=== PATIENT | female | born 1995 | race Asian ===

== ENCOUNTER → 2017-01-15 | Outpatient (REF) | payer OTHER | LOC: M LAB REF 18:21 | PROVIDERS: ATTEND Physician Assistant Medical | DX: J11.1 Influenza due to unidentified influenza virus with other respiratory manifestations (principal) ==

== ENCOUNTER → 2017-05-03 | Outpatient (REF) | payer OTHER | LOC: M SFHCWAGY 16:42 | PROVIDERS: ATTEND Nurse Practitioner Family | DX: Z11.3 Encounter for screening for infections with a predominantly sexual mode of transmission (principal) ==

== ENCOUNTER 2018-06-18 20:41 | Emergency (ER) | payer MEDICAID, SELFPAY, OTHER ==
[2018-06-18 21:32] LABS: CONTROL LINE UCG INT CTR LINE PRESENT; URINE PREG TEST NEGATIVE (NEGATIVE)
[2018-06-18 21:36] LABS: KETONE, URINE AUTO RFX 2+ mg/dL (NEGATIVE); MUCUS, URINE RFX SMALL (NEGATIVE); NITRITE, URINE AUTO RFX NEGATIVE (NEGATIVE); RBC, URINE AUTO RFX 16 /HPF (0-3); SPECIFIC GRAVITY UR AUTO RFX 1.014 (1.002-1.035); SQUAM EPITHELIAL CELL UR AURFX 6 /HPF (0-6)
[2018-06-18 21:37] LABS: LEUKOCYTE ESTERASE UR AUTO RFX 3+ (NEGATIVE); WBC, URINE AUTO RFX TNTC /HPF (0-3)
[2018-06-18] MEDS: ONDANSETRON 4 MG ORAL DISINTEGRATING TAB (Q0162 PER 1MG) PO (22:24)
[2018-06-18] MEDS: PHENAZOPYRIDINE 100 MG TAB PO (22:24)
[2018-06-18] MEDS: NITROFURANTOIN (MACROBID) 100 MG CAP PO (22:24)
== END 2018-06-18 22:48 | disposition home or self-care (01) ==
LOC: M ED 20:41
DX: N39.0 Urinary tract infection, site not specified (principal); J45.909 Unspecified asthma, uncomplicated; R51 Headache
CPT/HCPCS: Q0162

== ENCOUNTER → 2018-12-14 | Outpatient (REF) | payer OTHER ==
[~2018-12-14] MED LIST: MACR100C43 PO; PYRI1TAB5 PO; ZOFR4TAB14 PO
[2018-12-14 21:35] LABS: CHLAMYDIA DNA AMPLIFICATION NEGATIVE (NEGATIVE); GC DNA AMPLIFICATION NEGATIVE (NEGATIVE)
== END ==
LOC: M SFHCWAGY 14:54
PROVIDERS: ATTEND Nurse Practitioner Women's Health
DX: Z12.4 Encounter for screening for malignant neoplasm of cervix (principal)

== ENCOUNTER 2019-10-18 08:51 | Outpatient (CLI) | payer OTHER ==
[~2019-10-18] VITALS: Ht 147.3 cm; Wt 67.0 kg
[2019-10-18 08:53] VITALS: BP 121/90
[2019-10-19] MEDS ORDERED: PRENTAB9 PO (14:00)
--- NOTE | 2019-10-19 21:35 | HPE ---
DATE OF ADMISSION: 10/18/2019 This lady is a 23-year-old 1, last period 01/30/2019, estimated date of confinement (EDC) 11/05/2019, at 37 and three weeks of gestation. She has a history of bradycardia while at having an ultrasound. The baseline was 80 but she was lying on her back. She was immediately transferred over to labor and delivery for assessment. Risk factors is she has a marginal cord insertion. LABORATORY DATA: O+, HIV negative, hepatitis negative, RPR negative, rubella immune. Varicella equivocal. Pap normal. Urine negative. Gonorrhea and Chlamydia are negative. One-hour glucose was 138. Three-hour GTT, fasting 85, one-hour 146, two-hour 130 and three hours 82. Blood pressure is 121/90, pulse 106, temperature 97.0, respirations are 18. Urine is not available. PHYSICAL EXAMINATION: No distress. Symphysis fundus height is 38, vertex presenting. The patient is on her side. Category 1 strip for at least half an hour with accelerations noted, moderate variability and normal baseline. No decelerations were noted and we never had an abnormal heart rate pattern since. In summary, we have a 37+ week of gestation, had an episodic bradycardia due to positional change, was discharged with precautions, has a followup appointment 11/01/2019. Discharged undelivered.
== END 2019-10-18 10:15 | disposition home or self-care (01) ==
LOC: M LDO 08:51
PROVIDERS: ATTEND Obstetrics & Gynecology
DX: O36.8330 Maternal care for abnormalities of the fetal heart rate or rhythm, third trimester, not applicable or unspecified (principal); Z3A.37 37 weeks gestation of pregnancy
CPT/HCPCS: 59025; G0378; G0463

== ENCOUNTER 2019-10-19 13:48 | Outpatient (CLI) | payer OTHER ==
[~2019-10-19] VITALS: Ht 149.9 cm; Wt 66.5 kg
[2019-10-19] MEDS ORDERED: PRENTAB9 PO (14:00)
[2019-10-19 14:06] VITALS: BP 112/83
--- NOTE | 2019-10-19 14:56 | IPNPDOC ---
Text Note Date of Service The patient was seen on 10/19/19. NOTE patient is a 23 yo G1 @ 37+4wks gestation presents with concern for decreased movement. She is feeling baby move while in triage. denies ctx/lof/vb. vitals: nomal NAD abd: gravid, soft, nt, cephalic by rosa fht: 135/mod kevin/pos accel/no decel toco: irregular ctx a/p patient @ 37+4wks, doing well. baby moving. educate patient on kick count. return precautions given. f/u with regularly scheduled appointment. DO Consuelo VS,Henry, I+O VS, Ashbone, I+O Vital Signs Date Time Temp Pulse Resp B/P (MAP) Pulse Ox O2 Delivery O2 Flow Rate FiO2 10/19/19 14:06 98.4 110 18 112/83 (93) Room Air WHITNEY PULLIAM DO Oct 19, 2019 14:56
== END 2019-10-19 14:50 | disposition home or self-care (01) ==
LOC: M LDO 13:48
PROVIDERS: ATTEND Obstetrics & Gynecology
DX: O36.8130 Decreased fetal movements, third trimester, not applicable or unspecified (principal); Z3A.33 33 weeks gestation of pregnancy
CPT/HCPCS: 59025; G0378; G0463

== ENCOUNTER 2019-10-20 09:24 | Inpatient (IN) | payer OTHER ==
[~2019-10-20] VITALS: Ht 149.9 cm; Wt 66.7 kg
[2019-10-20] VITALS (42 sets, daily range): BP systolic 110–144; BP diastolic 58–99
[~2019-10-20 09:24] MED LIST changes: +PRENTAB9 PO
[2019-10-20] MEDS ORDERED: LACTATED RINGER'S 1000 ML IV STA (10:06)
--- NOTE | 2019-10-20 10:42 | HPEPDOC ---
Obstetrical History & Physical General Date of Admission Oct 20, 2019 at 09:46 History of Present Illness Chula is a 24yo with SIUP at 37w5d by 10wk u/s presenting with gross celeste kage of clear fluid that started around 0800 this morning with intermittent ctx that are not yet painful. No bleeding. Good movement. no fevers/chills/nausea/vomiting. Chief Complaint: LOF, term Information Provided By: Patient Care Care: Good Care Dating Final EDC: Nov 05, 2019 Final EDC by: 1st trimester (US) Antepartum Course Diagnos(e)s 40 pound weight gain, marginal cord insertion, varicella equivocal Height (inches): 58 Pre- weight (lbs.): 106 Admission Weight (lbs.): 147 Change in Weight (lbs.): 41 Past Medical History Past Obstetrical History : Past Obstetrical History: [employer] History: No pertinent history Past Medical History Medical History benign Surgical History: [place] teeth Family History Significant Family History: No pertinent family hx Social History Marital Status: Family situation: Spouse/partner home Psychosocial History: No pertinent psych hx * Smoker: non-smoker Alcohol: Denies Drugs: denies Imunizations Tdap status: current Influenza Status: current Allergies Coded Allergies: No Known Allergies (Unverified , 06/18/18) Medications Scheduled No.137/Iron/Folic Acd ( Vitamin Tablet) 1 Each Tablet, 1 TAB PO DAILY Physical Examination Physical Examination GENERAL: Alert and oriented times three. ABDOMEN: Gravid and non-tender to touch. FETUS: Is vertex (VTX) by sterile vaginal examination (SVE) EXTREMITIES: No edema BLE Grossly ruptured with marguerite pad soaked with clear fluid, immediately nitrazine positive Laboratory Data 24H LABS Laboratory Tests 2 10/20/19 09:49: Serology Scanned Report Hepatitis B Testing Pertinent Laboratoy Data Blood Type: O+ RBC Antibody Screen: Negative HIV: Negative Hepatitis B: Negative Hepatitis C: Unknown Rapid Plasma Reagin: Nonreactive Rubella: Immune Varicella: Nonreactive Chlamydia/Gonorrhea: Negative Group B Streptococcus: Unknown Cystic Fibrosis: Negative Glucose Tolerance Test: 138 (85/146/130/82) Anatomy Ultrasound Ultrasound Date: Jul 17, 2019 Placenta Location: Posterior Normal Anatomy: Yes Placenta Previa: No Steroid Therapy Steroid Therapy: No Vaginal Examination Dilation: 2cm Effacement: 90% Station: -1 Cervical Consistency: Soft Cervical Position: Middle Presentation: Cephalic presentation Assessment Heart Rate (FHR): 140 Variability: Moderate Accelerations: Positive Decelerations: None Tocometer Contractions: Yes Frequency: irregular Strength: palpated as mild Assessment/Plan Assessment Chula is a 24yo with SIUP at 37w5d by 10wk u/s with PROM, clear, 0800 today. Nitrazine positive, grossly ruptured. Irregular ctx. SCE /-2. Vitals wnl, benign exam. GBS unknown (collected two days prior, not yet resulted). Cephalic by SCE. Plan Admit and orient. [employer] and consent. Diet: clear liquids Group B Streptococcus (GBS) unknown, but full term so abx ppx not indicated Labs and intravenous (IV) per unit protocol. Counseled on Pitocin and augmentation of labor (IOL). Lactated Ringers (LR): Bolus 1000 mL, then at 125 mL/hr. Anticipate normal spontaneous delivery () Candidate for epidural as desired Safe to proceed MD Isai Langston Katrina D MD Oct 20, 2019 10:26
[2019-10-20 10:45] LABS: HEMATOCRIT 40.3 % (36.0-47.0); HEMOGLOBIN 12.6 g/dl (12.0-15.5); MEAN CORPUSCULAR HEMOGLOBIN 21.8 pg (27.0-33.0); MEAN CORPUSCULAR HGB CONC 31.3 g/dl (32.0-36.5); MEAN CORPUSCULAR VOLUME 69.7 fl (80.0-96.0); PLATELET COUNT, AUTOMATED 245 10^3/uL (150-450); RED BLOOD COUNT 5.78 10^6/uL (4.00-5.40); WHITE BLOOD COUNT 11.6 10^3/uL (4.0-10.0)
[2019-10-20] MEDS ORDERED: OXYTOCIN DRIP 30 UNITS in IV 1 EA IV SCH (10:45)
[2019-10-20] MEDS: LR 1,000 ML IV SCH ×3 (11:29→19:13)
[2019-10-20] MEDS ORDERED: PROMETHAZINE INJ 25 MG/ML VIAL (J2550) IV ONE (13:30)
[2019-10-20] MEDS ORDERED: BUTORPHANOL 2 MG/ML INJ (J0595) IV PRN (14:00)
[2019-10-20] MEDS ORDERED: FENTANYL 2MCG/ML ROPIVACAINE 0.2% IN 0.9% NACL 100ML IVBAG As Ordered ONE (16:47)
[2019-10-20] MEDS ORDERED: ONDANSETRON 4MG/2ML VIAL (J2405) IV PRN (19:00)
[2019-10-20] MEDS ORDERED: FENTANYL/ROPIVACAINE/NACL BAG 100 ML EPIDURAL SCH (19:00)
[2019-10-20] MEDS ORDERED: NALOXONE INJ 0.4 MG/1 ML VIAL (J2310) IV PRN (19:00)
[2019-10-20] MEDS ORDERED: EPIDURAL/PCA KEYS XX PRN (19:00)
[2019-10-20] MEDS ORDERED: REFRIGERATOR IV KEYS XX PRN (19:00)
[2019-10-20] MEDS ORDERED: ePHEDrine SULFATE 25 MG/5 ML(5MG/ML) SYRINGE IV PRN (19:00)
[2019-10-20] MEDS ORDERED: LACTATED RINGER'S 1000 ML IV PRN (19:00)
[2019-10-20] MEDS ORDERED: EPIDURAL COMMENT XX SCH (19:00)
[2019-10-20] MEDS ORDERED: diphenhydrAMINE INJ 50MG/ML VIAL (J1200) IV PRN (19:00)
--- NOTE | 2019-10-20 23:53 | IPNPDOC ---
Text Note Date of Service The patient was seen on 10/20/19. NOTE Intrapartum Note Pt doing well with epidural. Feels occasional rectal pressure. I checked her at 2245 and she was C/C/0. We did 2 sets of practice pushes without much forward progress, so I elected to have her do passive descent for 1 hour. Vitals wnl, afebrile Cat I FHRT with bl 130's, +accels, -decels, mod kevin [place]: ctx q2-3min plan to now begin pushing in earnest safe to proceed Dr. Joan Alex MD VS,Henry, I+O VS, Henry, I+O Laboratory Tests 10/20/19 10:28 Vital Signs Date Time Temp Pulse Resp B/P (MAP) Pulse Ox O2 Delivery O2 Flow Rate FiO2 10/20/19 21:58 90 116/65 (82) 10/20/19 21:29 16 10/20/19 20:58 98.9 Joan Alex MD Oct 20, 2019 23:53
[2019-10-21] VITALS (10 sets, daily range): BP systolic 112–146; BP diastolic 55–82
[2019-10-21] MEDS ORDERED: OXYTOCIN DRIP 30 UNITS in IV 1 EA IV SCH (01:39)
[2019-10-21] MEDS ORDERED: RHOGAM 300 MCG (1500 IU) INJ (J2790) IM SCH (01:45)
[2019-10-21] MEDS ORDERED: MEASLES,MUMPS,RUBELLA VACCINE INJ (MMR-II) (90707) SC SCH (01:45)
[2019-10-21] MEDS ORDERED: DIBUCAINE 1% OINTMENT 30GM TOP PRN (01:45)
[2019-10-21] MEDS ORDERED: IBUPROFEN 600 MG TAB PO PRN (01:45)
[2019-10-21] MEDS ORDERED: ACETAMINOPHEN TAB 650MG DOSE (2X325MG) PO PRN (01:45)
[2019-10-21] MEDS ORDERED: DOCUSATE SODIUM 100 MG CAP PO PRN (01:45)
[2019-10-21] MEDS ORDERED: ACETAMINOPHEN 500 MG TAB PO PRN (01:45)
[2019-10-21] MEDS ORDERED: IBUPROFEN 800 MG TAB PO PRN (01:45)
--- NOTE | 2019-10-21 01:53 | DNPDOC ---
[facility] Delivery Note Delivery Note DATE OF DELIVERY: 21 Oct 2019 at 0116 PREDELIVERY DIAGNOSIS: 37w6d SROM POST DELIVERY DIAGNOSIS: Delivered. PROCEDURE: Spontaneous vaginal delivery DIRECTOR WEIGHTS AND MEASURES: Dr. Joan Alex MD ANESTHESIA: epidural ESTIMATED BLOOD LOSS: 200 mL. FINDINGS: 7 pound 8 ounce (3390g) male infant, Score 9/9 DELIVERY SUMMARY: Chula is a 24yo [id number] s/p uncomplicated at 37w6d after presenting with SROM, delivering at 0116 on 21 Oct 2019. She progressed from 2/90/-1 with pitocin augmentation to C/C/0 at which point she began pushing. head delivered OA, restituted CHRIS. Left anterior shoulder delivered followed by posterior shoulder (with right compound hand) and corpus. Infant had spontaneous cry and was vigorous, apgars 9/9, placed on maternal abdomen where nose/mouth were suctioned with bulb suction. After approx 1 min, umbilical cord was clamped x2 and cut by FOB. Cord blood obtained for MBT O pos. With fundal massage and traction on the cord, placenta delivered spontaneously and intact with 3 vessel centrally inserted cord. Bimanual massage performed and pitocin given per protocol via IV, fundus then firm at u-2cm. Inspection of perineum and vagina revealed small 1mll and periurethral laceration, both repaired with figure of 8's with complete hemostasis and reapproximation. Mom and infant were doing well when I left the room. MD Isai Langston Katrina D MD Oct 21, 2019 01:53
[2019-10-21] MEDS: PRENATAL VITAMINS CHEWABLE TABLET PO SCH (10:19)
[2019-10-22 06:00] VITALS: BP 123/72
--- NOTE | 2019-10-22 08:49 | IPNPDOC ---
Progress Note Date of Service: Oct 22, 2019 Progress Note Chula is a 24 yo G1 now P1 who is PPD#1 s/p uncomplicated in the storage center manager hours of 21Oct2019 after being admitted for active labor. No acute events over last 24 hours. Ms. Mcconnell feels well this morning and has no complaints. SHe is ambulating, voiding, tolerating a regular diet, has minimal lochia, and minimal pain. She denies fevers/chills, n/v, or dysuria. Vitals - VSS, afebrile, normotensive, non tachycardic General - AAOX3, sitting up in bed, NAD Abdomen - Fundus firm at U-2. No fundal tenderness Extremities - No edema UO - appropriate Ms. Mcconnell is doing well and is making an appropriate recovery. Plan to continue routine care. Anticipate discharge home tomorrow. Bal Hsu DO VS, I&O, 24H, Fishbone Vital Signs/I&O Vital Signs Date Time Temp Pulse Resp B/P (MAP) Pulse Ox O2 Delivery O2 Flow Rate FiO2 10/22/19 06:00 97.0 90 18 123/72 (89) 98 Room Air I&O- Last 24 Hours up to 6 AM 10/22/19 06:00 Intake Total 240 ml Balance 240 ml BAL HSU DO Oct 22, 2019 08:49
[2019-10-22] MEDS: PRENATAL VITAMINS CHEWABLE TABLET PO SCH (10:05)
[2019-10-22 18:00] VITALS: BP 128/70
[2019-10-23 06:00] VITALS: BP 129/65
[2019-10-23] MEDS ORDERED: ACET1TAB55 PO (08:26)
[2019-10-23] MEDS ORDERED: IBUP80TA PO (08:26)
--- NOTE | 2019-10-23 08:28 | DS.PDOC ---
Discharge Summary General Date of Admission Oct 20, 2019 at 09:46 Date of Discharge 23Oct2019 Discharge Summary HOSPITAL COURSE: Ms. Mcocnnell is a 24 yo G1 now P1 who underwent an uncomplicated in the early childhood associate hours of 21Oct2019 after being admitted for active labor. Her course was unremarkable. On her day of discharge she met all appropriate discharge criteria. She was ambulating, voiding, tolerating a regular diet, had minimal lochia, and her pain was well controlled with PO pain medications. DISCHARGE MEDICATIONS: Please see below. ALLERGIES: Please see below. PHYSICAL EXAMINATION ON DISCHARGE: VITAL SIGNS: Please see below. GENERAL: AAOX3, sitting up in bed, NAD CARDIOVASCULAR EXAMINATION: RRR ABDOMINAL EXAMINATION: Fundus firm at U-2. No fundal tenderness EXTREMITIES: No edema PSYCHIATRIC EXAMINATION: Affect appropriate LABORATORY DATA: Please see below. ACTIVITY: Pelvic rest for 6 weeks. DIET: Regular DISCHARGE PLAN: Discharge home DISPOSITION: Discharge on 23Oct2019 DISCHARGE INSTRUCTIONS: 1. Pelvic rest ITEMS TO FOLLOWUP ON ON OUTPATIENT: 1. appt in 6 weeks DISCHARGE CONDITION: Stable TIME SPENT ON DISCHARGE: Greater than 20 minutes. Bal Hsu DO Vital Signs/I&Os Vital Signs Date Time Temp Pulse Resp B/P (MAP) Pulse Ox O2 Delivery O2 Flow Rate FiO2 10/23/19 06:00 97.0 83 18 129/65 (86) 97 Room Air Discharge Medications Scheduled No.137/Iron/Folic Acd ( Vitamin Tablet) 1 Each Tablet, 1 TAB PO DAILY, (Reported) Scheduled PRN Acetaminophen (Acetaminophen) 325 Mg Tablet, 650 MG PO Q4HP PRN for PAIN LEVEL 1-5 Ibuprofen (Ibuprofen) 800 Mg Tablet, 800 MG PO Q8HP PRN for PAIN LEVEL 6-10 Allergies Coded Allergies: No Known Allergies (Unverified , 06/18/18) BAL HSU DO Oct 23, 2019 08:28
[2019-10-23] MEDS: PRENATAL VITAMINS CHEWABLE TABLET PO SCH (09:11)
== END 2019-10-23 12:40 | disposition home or self-care (01) | DRG 807 ==
LOC: M LDO 09:24 → M LDI 09:46 → M OBS 10-21 03:21
PROVIDERS: ADMIT Obstetrics & Gynecology; ATTEND Obstetrics & Gynecology
PROC: 10E0XZZ Delivery of Products of Conception, External Approach (ICD-10-PCS; principal; 2019-10-21)
PROC: 0HQ9XZZ Repair Perineum Skin, External Approach (ICD-10-PCS; 2019-10-21)
DX: O70.0 First degree perineal laceration during delivery (principal); Z37.0 Single live birth; Z3A.37 37 weeks gestation of pregnancy

== ENCOUNTER → 2020-01-31 | Outpatient (CLI) | payer OTHER ==
[~2020-01-31] MED LIST changes: +ACET1TAB55 PO; +IBUP80TA PO
--- NOTE | 2020-01-31 16:49 | REP ---
RENAL ULTRASOUND: Real-time sonographic evaluation of the kidneys performed. The kidneys are normal in size and echotexture, right kidney measuring 11.6 x 6.2 x 3.8 cm and left kidney 11.6 x 3.9 x 4.6 cm. There is no hydronephrosis, renal mass or nephrolithiasis identified. The urinary bladder is moderately distended. Ureteral jets are seen in the urinary bladder bilaterally. IMPRESSION: Negative renal ultrasound. Electronically Signed by Zoltan Pittman MD 01/31/2020 04:59 P
== END ==
LOC: M RAD 15:47
PROVIDERS: ATTEND Otolaryngology
DX: H90.41 Sensorineural hearing loss, unilateral, right ear, with unrestricted hearing on the contralateral side (principal)

== ENCOUNTER → 2020-04-18 | Outpatient (CLI) | payer OTHER ==
[2020-04-18 17:52] LABS: HEMATOCRIT 38.9 % (36.0-47.0); HEMOGLOBIN 11.9 g/dl (12.0-15.5); MEAN CORPUSCULAR HGB CONC 30.6 g/dl (32.0-36.5); MEAN CORPUSCULAR VOLUME 65.3 fl (80.0-96.0); PLATELET COUNT, AUTOMATED 317 10^3/uL (150-450); RED BLOOD COUNT 5.96 10^6/uL (4.00-5.40); WHITE BLOOD COUNT 6.2 10^3/uL (4.0-10.0)
[2020-04-18 18:06] LABS: BLOOD UREA NITROGEN 11 MG/DL (7-18); CARBON DIOXIDE LEVEL 27 MEQ/L (21-32); CHLORIDE LEVEL 105 MEQ/L (98-107); CREATININE FOR GFR 0.63 MG/DL (0.55-1.30); GLOMERULAR FILTRATION RATE > 60.0 (>60); POTASSIUM SERUM 4.1 MEQ/L (3.5-5.1); SODIUM LEVEL 140 MEQ/L (136-145)
== END ==
LOC: M LAB 16:29
PROVIDERS: ATTEND Otolaryngology
DX: H90.41 Sensorineural hearing loss, unilateral, right ear, with unrestricted hearing on the contralateral side (principal)